=== PATIENT | female | born 1995 | race Two or more races ===

== ENCOUNTER 2017-07-04 12:26 | Outpatient (CLI) | payer OTHER | END 2017-07-04 12:56 | disposition home or self-care (01) | LOC: RAD 501 12:26 | DX: M40.03 Postural kyphosis, cervicothoracic region (principal); M54.16 Radiculopathy, lumbar region; M62.830 Muscle spasm of back ==

== ENCOUNTER 2017-08-15 15:06 | Outpatient (CLI) | payer OTHER | END 2017-08-15 17:00 | disposition home or self-care (01) | LOC: TOM 15:06 | DX: J32.9 Chronic sinusitis, unspecified (principal); J01.21 Acute recurrent ethmoidal sinusitis ==

== ENCOUNTER 2018-02-06 11:44 | Outpatient (CLI) | payer OTHER | END 2018-02-06 13:33 | disposition home or self-care (01) | LOC: RAD 501 11:44 | DX: M00.061 Staphylococcal arthritis, right knee (principal) ==

== ENCOUNTER 2018-03-24 11:08 | Emergency (ER) | payer OTHER ==
[~2018-03-24] VITALS: Ht 154.9 cm; Wt 72.1 kg
[2018-03-24] MEDS ORDERED: SYMBICORT 16010.2 GM (11:39)
[2018-03-24] MEDS ORDERED: SINGULAIR 10MG10 MG (11:39)
[2018-03-24] MEDS ORDERED: PROAIR HFA8.5 GM (11:39)
== END 2018-03-24 16:28 | disposition home or self-care (01) ==
LOC: ER 11:08
DX: T78.1XXA Other adverse food reactions, not elsewhere classified, initial encounter (principal); X58.XXXA Exposure to other specified factors, initial encounter

== ENCOUNTER 2018-05-22 18:12 | Emergency (ER) | payer OTHER ==
[~2018-05-22] VITALS: Ht 154.9 cm; Wt 74.8 kg
[~2018-05-22 18:12] MED LIST: PROAIR HFA8.5 GM; SINGULAIR 10MG10 MG; SYMBICORT 16010.2 GM
== END 2018-05-22 22:59 | disposition home or self-care (01) ==
LOC: ER 18:12
DX: K52.9 Noninfective gastroenteritis and colitis, unspecified (principal)

== ENCOUNTER 2021-01-09 16:20 | Outpatient (CLI) | payer OTHER | END 2021-01-09 16:27 | disposition home or self-care (01) | LOC: RAD 16:20 | PROVIDERS: ATTEND Physical Medicine & Rehabilitation | DX: S60.212A Contusion of left wrist, initial encounter (principal); M77.12 Lateral epicondylitis, left elbow ==

== ENCOUNTER 2021-01-20 15:50 | Outpatient (CLI) | payer OTHER | END 2021-01-20 16:07 | disposition home or self-care (01) | LOC: RAD 15:50 | PROVIDERS: ATTEND Orthopaedic Surgery Hand Surgery | DX: S62.002A Unspecified fracture of navicular [scaphoid] bone of left wrist, initial encounter for closed fracture (principal) ==

== ENCOUNTER 2021-10-13 15:47 | Outpatient (CLI) | payer OTHER | END 2021-10-13 15:56 | disposition home or self-care (01) | LOC: RAD 15:47 | PROVIDERS: ATTEND Physical Medicine & Rehabilitation | DX: M54.2 Cervicalgia (principal) ==

== ENCOUNTER 2022-04-26 11:58 | Outpatient (CLI) | payer OTHER | END 2022-04-26 12:13 | disposition home or self-care (01) | LOC: RAD 11:58 | PROVIDERS: ATTEND Physical Medicine & Rehabilitation | DX: S92.342A Displaced fracture of fourth metatarsal bone, left foot, initial encounter for closed fracture (principal) ==

== ENCOUNTER 2022-08-05 12:27 | Outpatient (CLI) | payer OTHER | END 2022-08-05 12:40 | disposition home or self-care (01) | LOC: RAD 12:27 | PROVIDERS: ATTEND Physical Medicine & Rehabilitation | DX: M25.521 Pain in right elbow (principal); S50.01XD Contusion of right elbow, subsequent encounter ==

== ENCOUNTER 2022-10-31 11:19 | Emergency (ER) | payer OTHER ==
[~2022-10-31] VITALS: Ht 154.9 cm; Wt 74.8 kg
== END 2022-10-31 14:42 | disposition home or self-care (01) ==
LOC: ER 11:19
DX: U07.1 COVID-19 (principal); K29.70 Gastritis, unspecified, without bleeding; Z88.6 Allergy status to analgesic agent

== ENCOUNTER 2022-12-23 15:43 | Outpatient (CLI) | payer OTHER | END 2022-12-23 15:49 | disposition home or self-care (01) | LOC: RAD 15:43 | DX: M25.512 Pain in left shoulder (principal); M99.07 Segmental and somatic dysfunction of upper extremity; M62.838 Other muscle spasm ==